=== PATIENT | female | born 1955 | race Caucasian/White ===

== ENCOUNTER 2018-07-12 19:28 | Emergency (ER) | payer OTHER ==
--- NOTE | 2018-07-12 20:32 | ED Physician Documentation ---
PD HPI URI - Stated complaint Stated Complaint: COUGH/CONGESTION - Chief complaint Chief Complaint: Resp - History obtained from History obtained from: Patient - History of Present Illness Timing - onset: How many months ago (2) Timing details: Intermittant, Waxing and waning Pain level max: 0 Pain level now: 0 Associated symptoms: Productive cough. No: Fever, Chest pain Recently seen: Not recently seen Review of Systems Constitutional: reports: Reviewed and negative Cardiac: reports: Reviewed and negative Respiratory: reports: Cough. denies: Dyspnea GI: reports: Reviewed and negative PD PAST MEDICAL HISTORY - Past Medical History Past Medical History: No - Present Medications Home Medications: Ambulatory Orders Medication Instructions Recorded Confirmed Benzonatate [Tessalon Perle] 200 mg PO Q6HR PRN #30 capsule 07/12/18 guaiFENesin/CODEINE [Robitussin AC] 5 ml PO Q6H PRN #100 udc 07/12/18 predniSONE [Prednisone] 40 mg PO DAILY #8 tablet 07/12/18 - Allergies Allergies/Adverse Reactions: Allergies Allergy/AdvReac Type Severity Reaction Status Date / Time Penicillins Allergy Rash Verified 07/12/18 21:07 PD ED PE NORMAL - Vitals Vital signs reviewed: Yes - General General: Alert and oriented X 3, No acute distress, Well developed/nourished - Neck Neck: Supple, no meningeal sign - Cardiac Cardiac: RRR, No murmur - Respiratory Respiratory: No respiratory distress - Extremities Extremities: No edema PD ED PE EXPANDED - Respiratory Respiratory: Other (scattered rhonchi bilaterally without wheezing.) Results - Vitals Vitals: Oxygen O2 Source Room air - Rads (name of study) chest xray Radiology: Prelim report reviewed, See rad report PD MEDICAL DECISION MAKING - ED course Complexity details: reviewed results, re-evaluated patient, considered differential, d/w patient - Sepsis Event Vital Signs: Oxygen O2 Source Room air Departure - Departure Disposition: 01 Home, Self Care Clinical Impression: Bronchitis Condition: Good Instructions: ED Upper Resp Infec No Abx Tx Prescriptions: Benzonatate [Tessalon Perle] 200 mg PO Q6HR PRN #30 capsule PRN Reason: Cough guaiFENesin/CODEINE [Robitussin AC] 5 ml PO Q6H PRN #100 udc PRN Reason: Cough predniSONE [Prednisone] 40 mg PO DAILY #8 tablet Discharge Date/Time: 07/12/18 22:44
[2018-07-12] MEDS ORDERED: BENZONATATE 100 MG CAPSULE PO STA (20:50)
[2018-07-12] MEDS ORDERED: ALBUTEROL NEB 2.5 MG/3 ML INH STA (20:50)
--- NOTE | 2018-07-12 20:54 | XRAY Report ---
Reason: cough x 2 months Procedure Date: 07/12/2018 Accession Number: [id number] / [id number] Procedure: XR - Chest 2 View X-Ray CPT Code: 80134 FULL RESULT: EXAM: CHEST RADIOGRAPHY EXAM DATE: 07/12/2018 08:28 PM. CLINICAL HISTORY: Cough x 2 months. COMPARISON: None. TECHNIQUE: 2 views. FINDINGS: Lungs/Pleura: Minimal linear opacity at the lung bases. No other focal consolidation. No pleural effusion. No pneumothorax. Mediastinum: Cardiac silhouette size appears unremarkable. Mild vascular calcification. Other: None. IMPRESSION: Minimal linear probable atelectasis/scarring at the bases. No other focal consolidation or effusions. RADIA
[2018-07-12 22:25] VITALS: BP 131/70
== END 2018-07-12 22:44 | disposition home or self-care (01) ==
LOC: ED 19:28
DX: J40 Bronchitis, not specified as acute or chronic (principal)
CPT/HCPCS: 71046; 94640; 99283; A9270

== ENCOUNTER 2019-07-11 11:34 | Outpatient (CLI) | payer MEDICARE, OTHER ==
--- NOTE | 2019-07-17 16:13 | Mammography Report ---
Reason: ROUTINE MAMMO Procedure Date: 07/11/2019 Accession Number: [id number] / [id number] Procedure: [facility] - Screening Mammo w/Joe CPT Code: FULL RESULT: EXAM: Screening Mammo w/Joe DATE: 07/11/2019 12:04 PM CLINICAL HISTORY: Routine screening TECHNIQUE: (B) - Bilateral CC and MLO views were obtained. COMPARISON: 01/30/2014, 01/12/2013, 01/12/2012 and 12/22/2010 PARENCHYMAL PATTERN: (A) - The breasts demonstrate scattered fibroglandular densities bilaterally. FINDINGS: No significant interval change. There are no suspicious masses, calcifications, or areas of distortion. IMPRESSION: Negative examination. BI-RADS category 1. RECOMMENDATION: (ANNUAL) - Recommend routine annual screening mammography. BI-RADS CATEGORY: (1) - Negative. STANDARD QUALIFYING STATEMENTS: 1. This examination was not reviewed with the aid of Computer-Aided Detection (CAD). 2. A negative or benign imaging report should not preclude biopsy if clinically suspicious findings are present. 3. Dense breasts may obscure an underlying neoplasm. 4. This examination was reviewed with the aid of 3D breast imaging (tomosynthesis).
== END 2019-07-11 11:35 | disposition home or self-care (01) ==
LOC: DI 11:34
PROVIDERS: ATTEND Family Medicine
DX: Z12.31 Encounter for screening mammogram for malignant neoplasm of breast (principal)
CPT/HCPCS: 77063; 77067

== ENCOUNTER 2022-12-17 07:42 | Day surgery (SDC) | payer MEDICARE ==
[2022-12-17] MEDS ORDERED: LACTATED RINGERS 1,000 ML IV ONE (08:09)
[2022-12-17] MEDS ORDERED: PROPOFOL 500 MG/50 ML 500 MG/50 ML VIAL ONE (10:25)
[2022-12-17] MEDS ORDERED: LACTATED RINGERS 300 ML IV ONE (10:48)
--- NOTE | 2022-12-17 10:54 | ANESTHESIA ---
Pre-Anesthesia VS, & Labs - Diagnosis history of colon polyps - Procedure colonoscopy Vital Signs: Temp Pulse Resp BP Pulse Ox O2 Flow Rate 36 C L 70 16 85/44 L 96 12/17/22 10:49 12/17/22 10:49 12/17/22 10:49 12/17/22 10:49 12/17/22 10:49 Height: 5 ft 6 in Weight (kg): 89.1 kg Body Mass Index: 31.6 BMI Classification: Obese - NPO >8 hours - Is Patient ?: No Home Medications and Allergies Home Medications: Ambulatory Orders Pravastatin [Pravachol] 10 mg PO DAILY 12/16/22 Pravastatin [Pravachol] 10 mg PO DAILY 12/16/22 Allergies/Adverse Reactions: Allergies Allergy/AdvReac Type Severity Reaction Status Date / Time Penicillins Allergy Rash Verified 12/17/22 08:14 Anes History & Medical History - Anesthetic History Anesthesia Complications: reports: No previous complications - Medical History Cardiovascular: reports: High cholesterol Pulmonary: reports: None Gastrointestinal: reports: Colon polyps Urinary: reports: None Neuro: reports: None Musculoskeletal: reports: Osteoarthritis Endocrine/Autoimmune: reports: None Skin: reports: None Smoking Status: Never smoker Psychosocial: reports: No issues indicated History of Cancer?: Yes (cervical cancer s/p hysterectomy) - Surgical History General: reports: Appendectomy Gynecologic: reports: Hysterectomy Orthopedic: reports: Knee replacement Exam General: Alert, Oriented x3, Cooperative, No acute distress Dental: WNL Mouth Openin Fingerbreadth Neck Mobility: Normal Mallampati classification: III Thyromental Distance: 4-6 cm Mental/Cognitive Status: Alert/Oriented X3, Normal for patient Plan Anesthesia Type: General, Total IV Consent for Procedure(s) Verified and Reviewed: Yes Code Status: Attempt Resuscitation ASA classification: 2-Mild systemic disease Is this case an emergency?: No
[2022-12-17] MEDS ORDERED: SIMETHICONE 40 MG/0.6 ML 30 ML BOTTLE PO ONE (11:21)
[2022-12-17] MEDS ORDERED: LACTATED RINGERS 400 ML IV ONE (11:35)
[2022-12-17 11:58] VITALS: BP 123/64
--- NOTE | 2022-12-18 16:02 | ANESTHESIA POST OP EVALUATION ---
Anesthesia Post Eval - Post Anesthesia Eval Vitals: Last Vital Signs Temp 36.2 C L 12/17/22 11:35 Pulse 71 12/17/22 11:45 Resp 16 12/17/22 11:45 BP 123/64 12/17/22 11:45 Pulse Ox 97 12/17/22 11:45 O2 Flow Rate
== END 2022-12-17 07:43 | disposition home or self-care (01) ==
LOC: SDS 07:42
PROVIDERS: ATTEND Surgery
PROC: 0DBN8ZZ Excision of Sigmoid Colon, Via Natural or Artificial Opening Endoscopic (ICD-10-PCS; principal; 2022-12-17 10:15)
DX: R10.31 Right lower quadrant pain (principal); D12.5 Benign neoplasm of sigmoid colon; K63.5 Polyp of colon; K57.30 Diverticulosis of large intestine without perforation or abscess without bleeding; E66.9 Obesity, unspecified; Z68.31 Body mass index [BMI] 31.0-31.9, adult
CPT/HCPCS: 45380; 45385; A9270; J7120

== ENCOUNTER 2022-12-29 10:41 | Outpatient (CLI) | payer MEDICARE ==
[2022-12-29] MEDS ORDERED: iohexoL-300 100 ML VIAL ONE (10:55)
[2022-12-29] MEDS ORDERED: DIATRIZOATE MEGLU/DIATRIZO SOD 30 ML BOTTLE PO ONE ×2 (10:55→14:30)
[2022-12-29 11:10] LABS: CREATININE 0.6 mg/dL (0.4-1.0)
[2022-12-29] MEDS ORDERED: iohexoL-300 100 ML VIAL IVP ONE (14:31)
--- NOTE | 2022-12-29 15:17 | CT Report ---
PROCEDURE: ABDOMEN/PELVIS W INDICATIONS: RLQ ABD PAIN CONTRAST: 100ml Omnipaque 300 TECHNIQUE: After the administration of IV and oral contrast, 5 mm thick sections acquired from the diaphragms to the symphysis. 5 mm thick coronal and sagittal reformats were acquired. For radiation dose reducti on, the following was used: automated exposure control, adjustment of mA and/or kV according to darren ent size. COMPARISON: None. FINDINGS: Image quality: Excellent. ABDOMEN: Lung bases: 5 mm posterior medial left lower lobe pleural-based nodule, 4/18. Lungs otherwise demons trate minor septal thickening. Heart size is normal. Solid organs: Liver is normal size and slightly decreased in overall attenuation. No suspicious mass . Spleen is normal size. Gallbladder appears normal. Biliary system is non dilated. Pancreas enhanc es normally. No adrenal nodules. Kidneys demonstrate normal size and enhancement, without hydroneph rosis. No hydroureter or ureteral calculi. Peritoneum and bowel: The stomach is normal, mostly decompressed. There is a tiny hiatal hernia. Sma ll bowel loops are normal caliber without wall thickening or obstruction. There is normal appendix. N ormal quantity of stool in the colon. Mild diverticulosis of the distal descending and proximal sigmo id colon. Mild posterior pelvic floor prolapse. No free fluid or air. Nodes and vessels: No retroperitoneal or mesenteric adenopathy by size criteria. Aorta and inferior vena cava are normal in size. Miscellaneous: No ventral hernias. PELVIS: Genitourinary: Bladder wall thickness is normal. The uterus is absent. Ovarian tissue is not seen, likely also surgically absent given several surgical clips in the pelvis bilaterally. Miscellaneous: No inguinal hernias or adenopathy. Bones: No suspicious bony lesions. No vertebral body compression fractures. IMPRESSION: 1. No etiology for right lower quadrant pain found. 2. Hysterectomy and probable bilateral oophorectomy. 3. Mild hepatic steatosis. 4. Mild colonic diverticulosis. Reviewed by: Brissa Gutierrez MD on 12/29/2022 3:16 PM PST Approved by: Brissa Gutierrez MD on 12/29/2022 3:16 PM PST Station ID: [id number]
== END 2022-12-29 10:42 | disposition home or self-care (01) ==
LOC: LAB 10:41
PROVIDERS: ATTEND Surgery
DX: R10.31 Right lower quadrant pain (principal); Z90.710 Acquired absence of both cervix and uterus; K76.0 Fatty (change of) liver, not elsewhere classified; K57.30 Diverticulosis of large intestine without perforation or abscess without bleeding
CPT/HCPCS: 36415; 74177; 82565; Q9963; Q9967